=== PATIENT | male | born 1965 | race Caucasian/White ===

== ENCOUNTER 2020-04-14 13:41 | Emergency (ER) | payer MEDICAID, SELFPAY ==
[2020-04-14 14:19] VITALS: BP 122/69; PULSE 79; RESP 20; TEMP 36.7; O2SAT 97
--- NOTE | 2020-04-14 15:34 | ED.EYEPROB ---
HPI - Eye Problem General Chief complaint: Eye Problems Stated complaint: right eye pain Time Seen by Provider: 04/14/20 15:05 Source: patient Mode of arrival: ambulatory Limitations: no limitations History of Present Illness HPI Narrative: Patient presents with chief complaint of pain and tearing for the right eye that began after his rolled over and accidentally scratched him in the eye. Patient reports discomfort and tearing. Patient reports some blurry vision. Patient denies having prior eye issues. Patient does wear glasses and denies contact lens usage. Patient denies any other symptoms or concerns. Related Data Allergies Allergy/AdvReac Type Severity Reaction Status Date / Time Penicillins Allergy Mild HIVES Verified 04/14/20 14:29 BABY Review of Systems Review of Systems: Narrative: CONSTITUTIONAL: Denies fever, chills, or sweats. EYES: Reports visual changes, redness, tearing and pain denies discharge. ENT: Denies rhinorrhea, congestion, sore throat, or otalgia. CARDIOVASCULAR: Denies chest pain, palpitations, or edema. RESPIRATORY: Denies cough or dyspnea. GASTROINTESTINAL: Denies abdominal pain, nausea, vomiting, or diarrhea. GENITOURINARY: Denies dysuria or hematuria. SKIN: Denies rash or itching. MUSCULOSKELETAL: Denies back pain, joint pain, or myalgia. NEUROLOGIC: Denies headache, numbness, dizziness, or weakness. PSYCHIATRIC: Denies anxiety or depression. PMFSH Social History Social History Gender identity (if verbalized by the patient): Male Exam Narrative: Exam Narrative: GENERAL: Well-appearing, well-nourished, and in no acute distress. HEAD: Normocephalic, atraumatic. EYES: PERRLA and EOMI. injected conjunctiva with tearing. Fluorescein eye stain noted moderate sized vertical scratch corneal abrasion over iris. ENT: Nares clear, no rhinorrhea or epistaxis. Mucous membranes moist. Oropharynx without tonsillar hypertrophy exudate or other lesions. Bilateral TMs pearly kohler nonbulging NECK: Supple. No adenopathy or masses. No carotid bruits or JVD CHEST: Clear to auscultation. No respiratory distress. No wheezes rales or rhonchi HEART: Regular rate and rhythm. No murmur heard. Normal peripheral pulses. ABDOMEN: Soft, nontender, nondistended, normal active bowel sounds. EXTREMITIES: Normal range of motion. No edema. SKIN: Warm, dry, no rash. NEURO: No focal deficits. Alert and oriented x3. PSYCH: Normal mood and affect. Course Vital Signs Vital signs: Vital Signs Temperature 98.0 F 04/14/20 14:19 Pulse Rate 79 04/14/20 14:19 Respiratory Rate 20 04/14/20 14:19 Blood Pressure 122/69 04/14/20 14:19 Pulse Oximetry 97 04/14/20 14:19 Temperature 98.0 F 04/14/20 14:19 Pulse Rate 88 04/14/20 16:28 Respiratory Rate 17 04/14/20 16:28 Blood Pressure 124/74 04/14/20 16:28 Pulse Oximetry 98 04/14/20 16:28 MDM - Eye Problem MDM Narrative Medical decision making narrative: Due to patient being very sensitive and the corneal abrasion being right over his iris I feel that he may feel more comfortable with the ointment despite the blurriness of vision it will cause. Patient states with the scratch right over his iris his vision is already blurred and he needs something that was soothe his eye. I feel that he will feel more relief with a barrier type effect of the ointment.. Patient instructed to follow-up with optometry/rock loader in 2 to 3 days for reevaluation of eye. Patient directed to follow-up sooner if vision worsens or if he has any other emergent symptoms. Patient prescribed naproxen for discomfort and inflammation. Differential Diagnosis Differential diagnosis: Likely corneal abrasion, conjunctivitis, acute iritis, hyphema, periorbital cellulitis, subconjunctival hemorrhage, glaucoma, corneal ulcer and ruptured globe Discharge Plan Discharge Clinical Impression: Corneal abrasion Qualifiers: Encounter type: initial encounter Laterality:
--- NOTE | 2020-04-14 16:02 | PC.NURSE ---
Pt requesting pain medication for eye, per [facility]OR[facility] okay to give 800mg Ibuprofen.
[2020-04-14] MEDS: IBUPROFEN 400 MG TABLET 800 MG PO (16:03)
[2020-04-14 16:28] VITALS: BP 124/74; PULSE 88; RESP 17; O2SAT 98
== END 2020-04-14 16:07 | disposition home or self-care (01) ==
PROVIDERS: Emergency Provider Emergency Medicine
DX: S05.01XA Injury of conjunctiva and corneal abrasion without foreign body, right eye, initial encounter (principal); W51.XXXA Accidental striking against or bumped into by another person, initial encounter
CPT/HCPCS: 99283; A9270

== ENCOUNTER 2023-02-20 11:34 | Emergency (ER) | payer BC, SELFPAY ==
--- NOTE | ~2023-02-20 | XR_ITS ---
XR chest 1V 02/20/2023 12:49 Indication: Cough. Headache. Procedure: AP view of the chest Comparison: 07/24/2019 Findings: There is chronic left basilar atelectasis/scarring. Heart size normal. No focal air space d isease, pulmonary edema, pleural effusion or suspected pneumothorax. Impression: 1: No acute cardiopulmonary disease. Reviewed, dictated and finalized at location A. Impression: 1: No acute cardiopulmonary disease.
--- NOTE | ~2023-02-20 | CT_ITS ---
EXAMINATION: CT brain wo con DATE: 02/20/2023 12:46 INDICATION: Headache. TECHNIQUE: Computed tomography (CT) of the head was performed without intravenous contrast. The dose- length product was 605.33 mGy-cm. Automated exposure control and iterative reconstruction technique w ere employed. COMPARISON: None FINDINGS: Generalized atrophy. No ventriculomegaly or midline shift. There is an arachnoid cyst along the retrocerebellar location on the left. No acute hemorrhage, infarction, mass or mass effect. No i ntracranial atherosclerosis. Basilar cisterns are patent. Paranasal sinuses and mastoids are pneumati zed. No depressed skull fractures. Midline sagittal images are unremarkable. IMPRESSION: 1. No acute intracranial abnormality. 2: Left retrocerebellar arachnoid cyst. Reviewed, dictated and finalized at location A.
[2023-02-20 11:35] VITALS: BP 153/89; PULSE 86; RESP 18; TEMP 36.6; O2SAT 97
[2023-02-20 11:56] VITALS: BP 126/92; RESP 16; O2SAT 97
--- NOTE | 2023-02-20 12:24 | ED.HA ---
HPI - Headache General Chief Complaint: Headache Stated Complaint: headache Time Seen by Provider: 02/20/23 12:12 Source: patient Mode of arrival: ambulatory Limitations: no limitations History of Present Illness HPI Narrative: 57 years old white male presents to the ED with frontal headache, throbbing radiating to the occipital area off and on for the last 5 days. History of migraine headache and usually does not last more than 5 days. This headache also associated with ringing in both ears which is constant. Been using [id number] medication without any relief. Also complaining of blurry vision and light bother him. He denies focal neurodeficit. History of diabetes not on any medication because he lost weight and he does not believe that he needed. Hyperlipidemia, Quit smoking 2 months ago. Denies any stress. He reported losing 30 pounds over the last 6 months. Related Data Allergies Allergy/AdvReac Type Severity Reaction Status Date / Time Penicillins Allergy Mild HIVES Verified 02/20/23 11:41 BABY Review of Systems Review of Systems: All systems reviewed & are unremarkable except as noted in HPI and below PMFSH Social History Social History Gender identity (if verbalized by the patient): Male Exam Narrative: General appearance: Well-developed, well-nourished Skin: Normal color Head: Normocephalic, nontraumatic Eyes: Clear conjunctiva ENT: Oropharynx normal, ears normal, nose normal Neck: Supple, nontender Chest and respiratory: Airway patent, no respiratory distress, no accessory muscle use Heart: Regular rate/rhythm Abdomen: Soft, nontender, no organomegaly, quiet bowel sounds Vascular: Normal peripheral pulses, normal capillary refill. Musculoskeletal: Normal range of motion, nontender back Neurologic: Alert and oriented ?3, EX[employer]ED [employer] is normal as tested, no gross motor deficit Course Reevaluation(s) Reevaluation #1: Currently patient feeling much better, no headache, no ringing in the ear. Ready to go home. Date: 02/20/23 Time: 14:12 Vital Signs Vital signs: Vital Signs Temperature 36.6 C 02/20/23 11:35 Pulse Rate 86 02/20/23 11:35 Respiratory Rate 18 02/20/23 11:35 Blood Pressure 153/89 H 02/20/23 11:35 Pulse Oximetry 97 02/20/23 11:35 Oxygen Delivery Room Air 02/20/23 11:35 Temperature 36.6 C 02/20/23 11:35 Pulse Rate 86 02/20/23 11:35 Respiratory Rate 16 02/20/23 11:56 Blood Pressure 126/92 H 02/20/23 11:56 Pulse Oximetry 97 02/20/23 11:56 Oxygen Delivery Room Air 02/20/23 11:35 MDM - Headache MDM Narrative Medical decision making narrative: Patient presents with headache and ringing in the ear, the headache similar to the migraine but lasted longer, associated with drinking in the ER. Patient does not take his blood glucose medication because been controlled after losing weight. He denies any fever, chills, nausea, vomiting. Physical examination was unremarkable, Differential diagnosis include migraine headache, anxiety-like symptoms, electrolyte imbalance, dehydration, tinnitus. Work-up today showed normal CBC, blood glucose of 357, normal CT scan of the head and chest x-ray. Hyperglycemia is high likely the underlying cause of patient's symptoms. Patient received 2 L of normal saline, 25 mg of Benadryl, 10 mg of Reglan, 4 mg of Zofran, 30 mg of Toradol and half milligram of Ativan IV with significant improvement. Patient to be discharged and to follow-up with his family physician for diabetes management. Differential Diagnosis Differential diagnosis: Likely headache and other (Intracranial path
[2023-02-20] MEDS: KETOROLAC 30 MG/ML VIAL (*BKC) IV PUSH (12:38)
[2023-02-20] MEDS: ONDANSETRON INJ 4 MG/2 ML VIAL IV PUSH (12:38)
[2023-02-20] MEDS: diphenhydrAMINE HCl INJ 50 MG/ML VIAL 25 MG IV PUSH (12:39)
[2023-02-20] MEDS: METOCLOPRAMIDE HCL INJ 10 MG/2 ML VIAL IV PUSH (12:39)
[2023-02-20] MEDS: SODIUM CHLORIDE 0.9% IV 1,000 ML 999 ML IV CONT ×2 (12:39→14:33)
[2023-02-20 12:40] LABS: Basophils Percent Auto 0.5 % (0.2-1.2); Eosinophils Absolute Auto 0.1 K/mm3 (0-0.3); Hematocrit 49.1 % (42.0-52.0); Hemoglobin 17.4 g/dL (14.0-18.0); Immature Granulocyte Absolute 0.04 K/mm3 (0.00-0.031); Immature Granulocyte Percent A 0.7 % (0-0.5); Immature Platelet Fraction Pct 3.3 % (0.9-11.2); Lymphocytes Absolute Auto 1.55 K/mm3 (0.9-3.2); Lymphocytes Percent Auto 26.9 % (18.3-44.2); Mean Corpuscular HGB Conc 35.4 g/dl (32-36); Mean Corpuscular Hemoglobin 33.9 pg (26-34); Mean Corpuscular Volume 95.7 fl (80-100); Mean Platelet Volume 10.4 fl (7.4-10.4); Monocytes Absolute Auto 0.5 K/mm3 (0.1-0.6); Monocytes Percent Auto 8.5 % (2.6-8.5); Neutrophils Absolute Auto 3.6 K/mm3 (1.3-6.7); Neutrophils Percent Auto 62.4 % (45.5-73.1); Platelet Count Result 109 k/mm3 (150-375); Red Blood Count 5.13 M/mm3 (4.6-6.20); Red Cell Distribution Width 12.5 % (11.5-14.5); White Blood Count 5.8 K/mm3 (4.5-10.0)
[2023-02-20 12:48] LABS: Alanine Aminotransferase 45 U/L (6-50); Albumin Level 4.4 g/dL (3.5-5.1); Alkaline Phosphatase 79 U/L (38-126); Anion Gap 8 mmol/L (8-16); Aspartate Amino Transferase 34 U/L (17-59); Bilirubin,Total 1.1 mg/dL (0.2-1.3); Blood Urea Nitrogen 18 mg/dL (9-20); Calcium 8.9 mg/dL (8.4-10.2); Carbon Dioxide 26 mmol/L (22-30); Chloride 101 mmol/L (98-107); Estimated CRCL calculation 109 ml/min; Estimated Glomerular Filt Rate > 60; Glucose 357 mg/dL (65-110); Potassium 4.4 mmol/L (3.4-5.0); Sodium 135 mmol/L (137-145)
[2023-02-20] MEDS: LORazepam INJ (*CRX) 2 MG/ML VIAL 0.5 MG IV PUSH (13:13)
[2023-02-20 15:05] VITALS: PULSE 84; RESP 20; O2SAT 98
== END 2023-02-20 15:06 | disposition home or self-care (01) ==
PROVIDERS: Emergency Provider Emergency Medicine
DX: E11.65 Type 2 diabetes mellitus with hyperglycemia (principal); R51.9 Headache, unspecified; H93.13 Tinnitus, bilateral
CPT/HCPCS: 36415; 70450; 71045; 80053; 85025; 85055; 96361; 96374; 96375; 99284; J1200; J1885; J2060; J2405; J2765; J7030